=== PATIENT | female | born 2000 | race Hispanic/Latino ===

== ENCOUNTER 2021-10-13 20:20 | Emergency (ER) | payer SELFPAY ==
[~2021-10-13] VITALS: Ht 162.6 cm; Wt 48.9 kg
[2021-10-13 20:20] VITALS: BP 107/63
[2021-10-13] MEDS ORDERED: PREN1CHW6 PO (20:26)
== END 2021-10-14 00:35 | disposition left against medical advice (07) ==
LOC: M ED 20:20
DX: Z53.21 Procedure and treatment not carried out due to patient leaving prior to being seen by health care provider (principal)

== ENCOUNTER 2022-02-19 07:22 | Emergency (ER) | payer OTHER, SELFPAY ==
[~2022-02-19] VITALS: Ht 162.6 cm; Wt 61.5 kg
[~2022-02-19 07:22] MED LIST: PREN1CHW6 PO
[2022-02-19 08:46] LABS: BASO % 0.4 % (0.0-1.0); EOS # 0.3 10^3/uL (0.0-0.5); EOS % 2.6 % (0.0-3.0); HEMATOCRIT 34.5 % (36.0-47.0); HEMOGLOBIN 11.5 g/dl (12.0-15.5); LYMPH # 1.6 10^3/uL (1.5-5.0); LYMPH % 14.5 % (24.0-44.0); MEAN CORPUSCULAR HEMOGLOBIN 30.5 pg (27.0-33.0); MEAN CORPUSCULAR HGB CONC 33.3 g/dl (32.0-36.5); MEAN CORPUSCULAR VOLUME 91.5 fl (80.0-96.0); MONO % 8.7 % (2.0-8.0); NEUTROPHILS % 73.1 % (36.0-66.0); PLATELET COUNT, AUTOMATED 230 10^3/uL (150-450); RED BLOOD COUNT 3.77 10^6/uL (4.00-5.40)
[2022-02-19 09:22] LABS: ALT/SGPT 11 U/L (12-78); BILIRUBIN,DIRECT < 0.1 MG/DL (0.0-0.2); BILIRUBIN,TOTAL 0.4 MG/DL (0.2-1.0); BLOOD UREA NITROGEN 6 MG/DL (7-18); CALCIUM LEVEL 9.3 MG/DL (8.5-10.1); CARBON DIOXIDE LEVEL 25 MEQ/L (21-32); CHLORIDE LEVEL 108 MEQ/L (98-107); CREATININE FOR GFR 0.54 MG/DL (0.55-1.30); GLOMERULAR FILTRATION RATE > 60.0 (>60); GLUCOSE, FASTING 66 MG/DL (70-100); SODIUM LEVEL 140 MEQ/L (136-145)
[2022-02-19 09:23] LABS: ALBUMIN 2.6 GM/DL (3.2-5.2); FREE T4 1.08 NG/DL (0.76-1.46); NT-PRO BNP 146 PG/ML (<125)
[2022-02-19 09:26] LABS: CK-MB VALUE MASS < 1.0 NG/ML (<3.6); CPK CREATINE PHOSPHOKINASE 20 U/L (26-192)
[2022-02-19] MEDS ORDERED: NS 1,000 ML IV ONE (10:05)
[2022-02-19 11:39] VITALS: BP 100/58
== END 2022-02-19 12:08 | disposition home or self-care (01) ==
LOC: M ED 08:45
DX: O26.893 Other specified pregnancy related conditions, third trimester (principal); R51.9 Headache, unspecified; R06.02 Shortness of breath; R42 Dizziness and giddiness; Z88.2 Allergy status to sulfonamides; Z79.899 Other long term (current) drug therapy; Z3A.33 33 weeks gestation of pregnancy

== ENCOUNTER → 2022-04-12 | Outpatient (CLI) | payer OTHER | LOC: M LDO 19:51 | PROVIDERS: ATTEND Obstetrics & Gynecology | DX: O36.8130 Decreased fetal movements, third trimester, not applicable or unspecified (principal); Z3A.37 37 weeks gestation of pregnancy; Z88.2 Allergy status to sulfonamides | CPT/HCPCS: 59025; 76815; G0463 ==

== ENCOUNTER 2022-09-16 18:52 | Emergency (ER) | payer OTHER ==
[~2022-09-16] VITALS: Ht 162.6 cm; Wt 54.5 kg
[~2022-09-16 18:52] MED LIST changes: +COLA100C5 PO; +PRENCHW PO
[2022-09-17 02:41] VITALS: BP 98/55
[2022-09-17 03:19] LABS: BASO # 0.1 10^3/uL (0.0-0.2); BASO % 0.7 % (0.0-1.0); EOS # 0.4 10^3/uL (0.0-0.5); EOS % 5.1 % (0.0-3.0); HEMATOCRIT 38.9 % (36.0-47.0); HEMOGLOBIN 12.9 g/dl (12.0-15.5); LYMPH # 2.7 10^3/uL (1.5-5.0); LYMPH % 38.2 % (24.0-44.0); MEAN CORPUSCULAR HEMOGLOBIN 29.8 pg (27.0-33.0); MEAN CORPUSCULAR HGB CONC 33.2 g/dl (32.0-36.5); MEAN CORPUSCULAR VOLUME 89.8 fl (80.0-96.0); MONO # 0.6 10^3/uL (0.0-0.8); MONO % 8.3 % (2.0-8.0); NEUTROPHILS # 3.3 10^3/uL (1.5-8.5); NEUTROPHILS % 47.4 % (36.0-66.0); PLATELET COUNT, AUTOMATED 259 10^3/uL (150-450); RED BLOOD COUNT 4.33 10^6/uL (4.00-5.40)
[2022-09-17 03:51] LABS: HCG, SERUM QUALITATIVE NEGATIVE (NEGATIVE)
[2022-09-17 03:56] LABS: LIPASE 41 U/L (12-53)
[2022-09-17 03:58] LABS: ALBUMIN 4.1 G/DL (3.2-5.2); ALKALINE PHOSPHATASE 92 U/L (46-116); ALT/SGPT < 9 U/L (7.0-40); AST/SGOT 13 U/L (<34); BILIRUBIN,TOTAL 0.7 MG/DL (0.3-1.2); BLOOD UREA NITROGEN 14 MG/DL (9-23); CALCIUM LEVEL 9.4 MG/DL (8.5-10.1); CARBON DIOXIDE LEVEL 26 MMOL/L (20-31); CHLORIDE LEVEL 106 MMOL/L (98-107); CREATININE FOR GFR 0.75 MG/DL (0.55-1.30); GLOMERULAR FILTRATION RATE > 60.0 (>60); GLUCOSE, FASTING 82 MG/DL (60-100); POTASSIUM SERUM 4.3 MMOL/L (3.5-5.1); SODIUM LEVEL 139 MMOL/L (136-145); TOTAL PROTEIN 7.2 G/DL (5.7-8.2)
[2022-09-17 03:59] LABS: BILIRUBIN,DIRECT 0.3 MG/DL (<0.4)
[2022-09-17 04:41] LABS: GC DNA AMPLIFICATION NEGATIVE (NEGATIVE)
== END 2022-09-17 10:26 | disposition left against medical advice (07) ==
LOC: M ED 18:52
DX: Z53.21 Procedure and treatment not carried out due to patient leaving prior to being seen by health care provider (principal)